=== PATIENT | male | born 1990 ===

== ENCOUNTER 2017-06-02 15:30 | Emergency (ER) | payer MEDICAID, OTHER ==
[2017-06-02 15:31] VITALS: BMI 22.9
[2017-06-02 15:55] VITALS: BP 113/75; PULSE 58; RESP 17; TEMP 97.8; O2SAT 100
[2017-06-02] MEDS ORDERED: Naproxen 550 mg Tab PO STA (16:20)
--- NOTE | 2017-06-02 17:11 | ED PDOC ---
Arrival/HPI - General Chief Complaint: Lower Extremity Problem/Injury Time Seen by Provider: 06/02/17 16:13 Historian: Patient - History of Present Illness Narrative History of Present Illness (Text): 06/02/17 17:16 27 yo M presents with injury to the L foot yesterday when it was run over by a gokart at work. Also reports of work injury to the L 5th digit on 05/25/17, he adds that he injured the same finger years ago from playing basketball. Denies any decrease in ROM, numbness, swelling, bruising or any other injury. Past Medical History - Provider Review Nursing Documentation Reviewed: Yes - Infectious Disease Hx of Infectious Diseases: None - Tetanus Immunization Tetanus Immunization: Unknown - Past Medical History Past Medical History: No Previous - Cardiac Hx Cardiac Disorders: No - Pulmonary Hx Respiratory Disorders: Yes Hx Asthma: Yes - Psychiatric Hx Depression: No Hx Emotional Abuse: No Hx Physical Abuse: No Hx Substance Use: Yes (Marijuana) - Past Surgical History Past Surgical History: No Previous - Anesthesia Hx Anesthesia: No Hx Anesthesia Reactions: No Hx Malignant Hyperthermia: No - Suicidal Assessment Feels Threatened In Home Enviroment: No Family/Social History - Physician Review Nursing Documentation Reviewed: Yes Family/Social History: Unknown Family HX Smoking Status: Current Some Days Smoker Hx Alcohol Use: Yes Hx Substance Use: Yes (Marijuana) Hx Substance Use Treatment: No Allergies/Home Meds Allergies/Adverse Reactions: Allergies No Known Allergies Allergy (Verified 06/02/17 15:52) Home Medications: Home Meds Medication Instructions Recorded Confirmed No Known Home Med 06/02/17 06/02/17 Review of Systems - Review of Systems Constitutional: Normal. absent: Fatigue, Weight Change, Fevers Musculoskeletal: Normal, Arthralgias. absent: Back Pain, Neck Pain Skin: Normal. absent: Rash, Pruritis, Skin Lesions Physical Exam - Physical Exam Narrative Physical Exam (Text): 06/02/17 17:18 GENERAL APPEARANCE: Patient is awake, alert, oriented x 3, in no acute distress. SKIN: Warm, dry; (-) cyanosis. UPPER EXTREMITY: (-) Tenderness, (-) swelling, (-) ecchymosis, (+) deformity at the PIP of the L 5th digit; (-) crepitus. Tendon function intact. (-) distal neurovascular deficit. 2 point discrimination. Remainder of hand, digits and wrist: (-) injury. LOWER EXTREMITY: (+) Tenderness, (-) swelling, (-) ecchymosis of of the lateral dorsal aspect of the L foot by the 5th metatarsal. (-) crepitus, (-) deformity. Tendon function intact. (-) distal neurovascular deficit. +2 point discrimination. Remainder of foot, digits and ankle: (-) injury except. Vital Signs Temp Pulse Resp BP Pulse Ox 06/02/17 15:55 97.8 F 58 L 17 113/75 100 Medical Decision Making ED Course and Treatment: 06/02/17 17:19 27 yo M presents with injury to the L foot yesterday when it was run over by a gokart at work. Also reports of work injury to the L 5th digit on 05/25/17 Plan : - XR L foot - XR L 5th digit - Naprosyn PO 06/02/17 18:24 XR L foot : (-) fracture, (-) dislocation, as read by PA. XR L 5th digit : (-) fracture, (-) dislocation, as read by PA. Patient advised that official radiology read of XR is still pending and will call the patient if there is any discrepancy within 24 hours. X-ray results was discussed with the patient in great detail. Delon wrap to the L foot applied. Dx of finger sprain and foot contusion d/w the patient. Advised RICE, take OTC nsaids for pain. Instructed to follow up with workman's comp in 1 -2 days without fail. Return to the emergency room at any time for any new or worsening symptoms. Patient states he fully agrees with and understands discharge instructions. States that he agrees with the plan and disposition. Verbalized and repeated discharge instructions and plan. I have given the patient opportunity to ask any additional questions. - RAD Interpretation Radiology Orders: 06/02/17 16:23 FOOT LEFT 3 VIEWS ROUTINE [RAD] Stat HAND LEFT 5TH DIGIT (FINGER) [RAD] Stat - Medication Orders Current Medication Orders: Discontinued Medications Naproxen (Anaprox Ds) 550 mg PO ONCE STA Stop: 06/02/17 16:21 Last Admin: 06/02/17 17:15 Dose: 550 mg - PA / SOCIAL MEDIA COMMUNITY MANAGER / Resident Statement MD/DO has reviewed & agrees with the documentation as recorded. Disposition/Present on Arrival - Present on Arrival Any Indicators Present on Arrival: No History of DVT/PE: No History of Uncontrolled Diabetes: No Urinary Catheter: No History of Decub. Ulcer: No History Surgical Site Infection Following: None - Disposition Have Diagnosis and Disposition been Completed?: Yes Diagnosis: Finger sprain, Foot contusion Disposition: HOME/ ROUTINE Disposition Time: 18:10 Patient Plan: Discharge Condition: STABLE Discharge Instructions (ExitCare): Foot Contusion (ED), Finger Sprain (ED) Print Language: SERBIAN Additional Instructions: Thank you for letting us take care of you today. You were treated for foot contusion, finger sprain. The emergency medical care you received today was directed at your acute symptoms. Rest, ice and elevate, take over the counter aleeve 2 tabs every 12 hours as needed for pain. It may take several days for your symptoms to resolve. Return to the Emergency Department if your symptoms worsen, do not improve, or if you have any other problems. Please contact your doctor in 2 days for re-evaluation and follow up / or call one of the physicians/clinics you have been referred to that are listed on the Patient Visit Information form that is included in your discharge packet. Bring any paperwork you were given at discharge with you along with any medications you are taking to your follow up visit. Our treatment cannot replace ongoing medical care by a primary care provider (PCP) outside of the emergency department. Thank you for allowing the [facility] team to be part of your care today. If you had an X-Ray : A Radiologist will review the ED reading if any change in treatment is needed we will contact you. Referrals: Rio Wilson, [Primary Care Provider] - [place] up with [place] [facility] [place] [facility] [place] - Follow up with primary Bárbara Machado MD [Staff Provider] - Follow up with primary Forms: [employer] (Greek), WORK NOTE
--- NOTE | 2017-06-02 18:32 | RAD ---
PROCEDURE: Left Foot Radiographs. HISTORY: pain COMPARISON: None. FINDINGS: BONES: Normal. No fracture. JOINTS: Normal. SOFT TISSUES: Normal. OTHER FINDINGS: None. IMPRESSION: Normal left foot radiographs.
--- NOTE | 2017-06-02 18:43 | RAD ---
PROCEDURE: Left small finger radiographs. HISTORY: pain COMPARISON: None. TECHNIQUE: AP radiograph of the left hand, as well as spot oblique and lateral images of left small finger were obtained. FINDINGS: LEFT SMALL FINGER: This suspicious for small chip fracture at the base of the middle phalanx of the 5th finger. There is well corticated ossicle adjacent to the proximal interphalangeal joint. Left small finger normal, without fracture of focal lesion. Remainder of the left hand (as seen on the AP view) is grossly unremarkable. JOINTS: Normal. SOFT TISSUES: Mild soft tissue swelling seen. OTHER FINDINGS: None. IMPRESSION: Suspicious for small chip fracture at the base of the mid phalanx of the 5th finger . Adjacent soft tissue swelling.
== END 2017-06-02 18:43 | disposition home or self-care (01) ==
LOC: ED 15:30
DX: S90.32XA Contusion of left foot, initial encounter (principal); S63.617A Unspecified sprain of left little finger, initial encounter; X58.XXXA Exposure to other specified factors, initial encounter; Y93.67 Activity, basketball; F17.200 Nicotine dependence, unspecified, uncomplicated

== ENCOUNTER 2017-10-12 19:10 | Emergency (ER) | payer MEDICAID, OTHER ==
[2017-10-12 19:10] VITALS: BMI 22.9
[2017-10-12 19:20] VITALS: BP 116/74; TEMP 97.3
[2017-10-12 19:22] VITALS: PULSE 72; RESP 18; O2SAT 96
--- NOTE | 2017-10-12 19:36 | ED PDOC ---
Arrival/HPI - General Chief Complaint: Abdominal Pain Time Seen by Provider: 10/12/17 19:13 Historian: Patient - History of Present Illness Narrative History of Present Illness (Text): 10/12/17 19:40 27yo male with no PMHx who present to ED requesting work note. He states he had abdominal pain with nausea and vomiting this morning , but it resolved after one episode of vomiting at 1400. 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 He denies any current complaint. Denies any other complaint. Past Medical History - Provider Review Nursing Documentation Reviewed: Yes - Infectious Disease Hx of Infectious Diseases: None - Tetanus Immunization Tetanus Immunization: Unknown - Past Medical History Past Medical History: No Previous - Cardiac Hx Cardiac Disorders: No - Pulmonary Hx Respiratory Disorders: Yes Hx Asthma: Yes - Psychiatric Hx Depression: No Hx Emotional Abuse: No Hx Physical Abuse: No Hx Substance Use: Yes (Marijuana) - Past Surgical History Past Surgical History: No Previous - Anesthesia Hx Anesthesia: No Hx Anesthesia Reactions: No Hx Malignant Hyperthermia: No - Suicidal Assessment Feels Threatened In Home Enviroment: No Family/Social History - Physician Review Nursing Documentation Reviewed: Yes Family/Social History: Unknown Family HX Smoking Status: Current Some Days Smoker Hx Alcohol Use: Yes Hx Substance Use: Yes (Marijuana) Hx Substance Use Treatment: No Allergies/Home Meds Allergies/Adverse Reactions: Allergies No Known Allergies Allergy (Verified 10/12/17 19:17) Home Medications: Home Meds Medication Instructions Recorded Confirmed No Known Home Med 06/02/17 10/12/17 Review of Systems - Physician Review All systems were reviewed & negative as marked: Yes - Review of Systems Constitutional: Normal Eyes: Normal ENT: Normal Respiratory: Normal Cardiovascular: Normal Gastrointestinal: Abdominal Pain, Nausea, Vomiting. absent: Constipation, Diarrhea, Hematochezia, Hematemesis Genitourinary Male: Normal Musculoskeletal: Normal Skin: Normal Neurological: Normal Endocrine: Normal Hemo/Lymphatic: Normal Psychiatric: Normal Physical Exam Vital Signs Reviewed: Yes Vital Signs Temp Pulse Resp BP Pulse Ox 10/12/17 19:19 97.3 F L 72 18 116/74 96 Temperature: Afebrile Blood Pressure: Normal Pulse: Regular Respiratory Rate: Normal Appearance: Positive for: Well-Appearing, Non-Toxic, Comfortable Pain Distress: None Mental Status: Positive for: Alert and Oriented X 3 - Systems Exam Head: Present: Atraumatic, Normocephalic Pupils: Present: PERRL Extroacular Muscles: Present: EOMI Conjunctiva: Present: Normal Mouth: Present: Moist Mucous Membranes Neck: Present: Normal Range of Motion Respiratory/Chest: Present: Clear to Auscultation, Good Air Exchange. No: Respiratory Distress, Accessory Muscle Use Cardiovascular: Present: Regular Rate and Rhythm, Normal S1, S2. No: Murmurs Abdomen: Present: Normal Bowel Sounds, Other (soft). No: Tenderness, Distention , Peritoneal Signs, Rebound, Guarding, McBurney's Point Tender, Rovsing's Sign Present Back: Present: Normal Inspection Upper Extremity: Present: Normal Inspection. No: Cyanosis, Edema Lower Extremity: Present: Normal Inspection. No: Edema Neurological: Present: GCS=15, CN II-XII Intact, Speech Normal Skin: Present: Warm, Dry, Normal Color. No: Rashes Psychiatric: Present: Alert, Oriented x 3, Normal Insight, Normal Concentration Disposition/Present on Arrival - Present on Arrival Any Indicators Present on Arrival: No History of DVT/PE: No History of Uncontrolled Diabetes: No Urinary Catheter: No History of Decub. Ulcer: No History Surgical Site Infection Following: None - Disposition Have Diagnosis and Disposition been Completed?: Yes Diagnosis: Abdominal pain Disposition: HOME/ ROUTINE Disposition Time: 19:35 Patient Plan: Discharge Patient Problems: Current Active Problems Problem Status Onset Abdominal pain Acute Condition: STABLE Discharge Instructions (ExitCare): Acute Abdomen (Belly Pain), Adult (DC) Additional Instructions: Follow up with your doctor Return to ED for any new symptoms Referrals: [facility] at [facility] [place] [Outside] - Follow up with primary Forms: [employer] (Indonesian), WORK NOTE
== END 2017-10-12 20:38 | disposition home or self-care (01) ==
LOC: ED 19:10
DX: R10.9 Unspecified abdominal pain (principal)